=== PATIENT | female | born 1985 | race Caucasian/White ===

== ENCOUNTER 2017-01-07 11:59 | Emergency (ER) | payer MEDICAID, OTHER ==
[~2017-01-07] VITALS: Ht 175.3 cm; Wt 95.3 kg
[2017-01-07 12:09] VITALS: BP_SYST 145
[2017-01-07] MEDS ORDERED: MAG HYDROX/AL HYDROX/SIMETH 30 ML, BELLADONNA ALKALOIDS/PHENOBARB 10 ML, LIDOCAINE VISC... PO ONE ×3 (12:30)
[2017-01-07 13:56] VITALS: BP_SYST 131
== END 2017-01-07 13:56 | disposition home or self-care (01) ==
LOC: SED 11:59
DX: K21.9 Gastro-esophageal reflux disease without esophagitis (principal); F17.200 Nicotine dependence, unspecified, uncomplicated; Z98.51 Tubal ligation status
CPT/HCPCS: 81025; 87086; 99283; J2001

== ENCOUNTER 2017-03-16 22:40 | Emergency (ER) | payer MEDICAID, OTHER ==
[~2017-03-16] VITALS: Ht 175.3 cm; Wt 98.0 kg
[2017-03-16 23:28] VITALS: BP_SYST 114
--- NOTE | 2017-03-16 23:28 | NUR ---
Patient triaged and placed in waiting room. VSS and patient appears in no acute distress at this time. Accompanied by , awaiting available bed, and MD notified of need for MSE.
--- NOTE | 2017-03-17 | NUR ---
Patient to ER [facility] for evaluation. Side rails up. Report given to Natanael NEVAREZ.
--- NOTE | 2017-03-17 00:05 | NUR ---
Patient arrived to ED a/o x 4 with c/o left sided ear pain. Patient reports 8/10 ear pain. Mild redness noted to outer ear with excess cerumen present. Patient afebrile. Will continue to monitor.
--- NOTE | 2017-03-17 00:10 | NUR ---
ED MD Rodriguez at bedside for medical evaluation.
[2017-03-17 00:20] VITALS: BP_SYST 118
--- NOTE | 2017-03-17 00:20 | NUR ---
Patient given written and verbal discharge instructions and verbalizes understanding. ER MD discussed with patient the results and treatment provided. Patient in stable condition. ID arm band removed. Rx of Amoxicillin given. Patient educated on pain management and to follow up with PMD. Pain Scale 3/10 tolerable for patient. Opportunity for questions provided and answered.
== END 2017-03-17 00:20 | disposition home or self-care (01) ==
LOC: SED 22:40
DX: H61.23 Impacted cerumen, bilateral (principal); H66.92 Otitis media, unspecified, left ear; J06.9 Acute upper respiratory infection, unspecified
CPT/HCPCS: 99284

== ENCOUNTER 2017-12-06 05:05 | Emergency (ER) | payer OTHER ==
[~2017-12-06] VITALS: Ht 175.3 cm; Wt 98.0 kg
[2017-12-06 05:12] VITALS: BP_SYST 114
[2017-12-06] MEDS ORDERED: BACITRACIN 1 GM OINT TP ONE (05:30)
[2017-12-06] MEDS ORDERED: LIDOCAINE 1% 10 MG/ML, 20 ML MDV IJ ONE (05:30)
[2017-12-06 06:05] VITALS: BP_SYST 115
== END 2017-12-06 06:05 | disposition home or self-care (01) ==
LOC: SED 05:05
DX: S61.210A Laceration without foreign body of right index finger without damage to nail, initial encounter (principal); W26.8XXA Contact with other sharp object(s), not elsewhere classified, initial encounter; Y93.89 Activity, other specified; Y92.89 Other specified places as the place of occurrence of the external cause; Y99.8 Other external cause status
CPT/HCPCS: 99283